=== PATIENT | female | born 1990 | race Caucasian/White ===

== ENCOUNTER 2018-03-20 15:41 | Inpatient (IN) ==
--- NOTE | 2018-03-20 17:04 | ED ---
History of Present Illness Primary Care Physician: NOT REQUIRED Chief Complaint: Contractions with pressure History of Present Illness: Ms. Mejia is a presenting at 40/2 weeks gestation for intermittent contractions and abdominal pressure/pain. Patient has been evaluated 2 times previously today in the OB ED for leg which she was both times sent home. [facility] where she was found to be 3 cm dilated. Patient states that her contractions increased and she presented to the OB ED for a labor check. She states that she is positive for both hepatitis C and herpes virus. She is currently been on Valtrex for prophylaxis and does not have a current outbreak. She is unsure of her most recent outbreak. Otherwise she states that this has been uncomplicated. She endorses good movement and denies any vaginal bleeding, vaginal discharge, dysuria, or hematuria at this time. She has no other acute complaints and denies a complete review of systems including but not limited to any fevers, chills, shortness of breath, chest pain, NVD, or calf tenderness at this time. She does endorse a penicillin allergy. She is unsure of her GBS status. 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 She endorses previous IV drug use likely related to her hepatitis C diagnosis. Weeks Gestation:: 40 Para: 0 : 2 PMFSH - History History Provided By: Patient - Medical History Medical History: Medical History (Last Updated 03/19/18 @ 19:55 by Billy Hoang MD) Ectopic HSV (herpes simplex virus) infection Hepatitis C virus History of intravenous drug abuse - Surgical History Surgical History: Surgical History (Last Updated 03/03/18 @ 13:10 by Bette Cardoza MD) Hx of tonsillectomy Status post excision of lipoma - Tobacco History Second Hand Smoke Exposure: No Smoking Status: Never smoker - Substance Use History Substance History: Past History - Travel History History of Recent Travel: No Medications and Allergies Allergies Allergy/AdvReac Type Severity Reaction Status Date / Time amoxicillin Allergy Severe Anaphylaxis Verified 03/03/18 12:35 Sulfa (Sulfonamide Allergy Severe Anaphylaxis Verified 03/03/18 12:35 Antibiotics) Home Medications Medication Instructions Recorded Confirmed Type PNV 39-iron [id number] 1 tab PO DAILY 03/03/18 03/20/18 History valacyclovir 1,000 mg PO DAILY 03/03/18 03/20/18 History Exam Vital signs: Vital Signs 03/20/18 16:03 Temperature 99.8 F H Pulse Rate 92 H Respiratory Rate 20 Blood Pressure 116/67 Narrative: GENERAL: Well-nourished, well-developed patient. SKIN: Warm and dry. HEAD: Normocephalic and atraumatic. EYES: No scleral icterus. No injection or drainage. ENT: No nasal drainage noted. Mucous membranes pink. Airway patent. NECK: Supple, trachea midline. No JVD. CARDIOVASCULAR: Regular rate and rhythm without murmurs, gallops, or rubs. RESPIRATORY: Breath sounds equal bilaterally. No accessory muscle use. ABDOMEN/GI: Abdomen soft, non-tender, bowel sounds present, no rebound, no guarding Gravid to 40 weeks size GENITOURINARY: Per Dr. Vinod Ortiz External Genitalia: intact and normal in appearance Cervix: Posterior Dilatation: 3 cm Effacement: 90 Station: -2 Membranes: Intact FHT's: Category: 1 Baseline: 140s Reactive: Positive Variability: Moderate Decels: None EXTREMITIES: No cyanosis or edema. BACK: Nontender without obvious deformity. No CVA tenderness. NEUROLOGICAL: Awake and alert. Motor and sensory grossly within normal limits. Five out of 5 muscle strength in all muscle groups. Normal speech. Assessment and Plan - Diagnosis (1) 40 weeks gestation of Code(s): Z3A.40 - 40 weeks gestation of Status: Acute Plan: 27-year-old presenting at 40/2 weeks gestation with abdominal pressure and irregular contractions Patient with progression from 1-3 cm dilation from her previous exams at the OB ED today Patient to be observed for possible labor progression and will be reevaluated in approximately 1 hour -Continue routine antepartum care Encouraged oral hydration and vitamin Category 1 tracing, reassuring SDW: Dr. Vinod Ortiz (2) Uterine contractions during Code(s): O62.2 - Other uterine inertia Status: Acute Discharge Plan - Discharge Disposition Patient Disposition: 30 Still Patient - Discharge Condition Condition: Good - Physicians Team ED Provider: Mari Silva Primary Care Provider: NOT REQUIRED, - Rxs /Orders / Referrals /Forms Prescriptions: No Action PNV 39-iron [id number]-gaosz-zky-dha 30 mg iron-1.2 mg-55 mg-265 mg Capsule 1 tab PO DAILY valacyclovir 1 gram Tablet 1,000 mg PO DAILY - Discharge Instructions Print Language: Kazakh
[2018-03-20] MEDS ORDERED: Oxytocin 30 Units/500ml Premix 30 UNITS/500 ML BAG IV.SIG ONE (18:03)
[2018-03-20] MEDS ORDERED: fentaNYL Citrate Inj 100 MCG/2 ML Ampul IV.PUSH PRN ×2 (18:03)
[2018-03-20] MEDS ORDERED: Sod Chloride 0.9% Inj 1,000 ML IV.CONT PRN (18:03)
[2018-03-20] MEDS ORDERED: Sodium Chlor 0.9% Inj 500 ML IV.SIG PRN (18:03)
[2018-03-20] MEDS ORDERED: Naloxone Inj 0.4 MG/ML Vial IV.PUSH PRN (18:03)
[2018-03-20] MEDS ORDERED: Oxytocin 30 Units/500ml Premix 30 UNITS/500 ML BAG IV.SIG PRN (18:04)
[2018-03-20] MEDS ORDERED: Citric Acid/Sodium Citrate Liq 30 ML UDC PO SCH (18:15)
--- NOTE | 2018-03-20 18:15 | P.HPOB ---
[facility] [id number] Date of : [birth year] Patient Status: Inpatient Attending Provider: Mari Birmingham Date: 03/20/18 16:35 Initialization Date: 03/20/18 16:35 History of Present Illness Primary Care Physician: NOT REQUIRED Chief Complaint: Contractions with pressure History of Present Illness: Ms. Mejia is a presenting at 40/2 weeks gestation for intermittent contractions and abdominal pressure/pain. Patient has been evaluated 2 times previously today in the OB ED for leg which she was both times sent home. She [facility] where she was found to be 3 cm dilated. Patient states that her contractions increased and she presented to the OB ED for a labor check. She states that she is positive for both hepatitis C and herpes virus. She is currently been on Valtrex for prophylaxis and does not have a current outbreak. She is unsure of her most recent outbreak. Otherwise she states that this has been uncomplicated. She endorses good movement and denies any vaginal bleeding, vaginal discharge, dysuria, or hematuria at this time. She has no other acute complaints and denies a complete review of systems including but not limited to any fevers, chills, shortness of breath, chest pain, NVD, or calf tenderness at this time. She does endorse a penicillin allergy. She is unsure of her GBS status. 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 She endorses previous IV drug use likely related to her hepatitis C diagnosis. Weeks Gestation:: 40 Para: 0 : 2 PMFSH - History History Provided By: Patient - Medical History Medical History: Medical History (Last Updated 03/19/18 @ 19:55 by Billy Hoang MD) Ectopic HSV (herpes simplex virus) infection Hepatitis C virus History of intravenous drug abuse - Surgical History Surgical History: Surgical History (Last Updated 03/03/18 @ 13:10 by Bette Cardoza MD) Hx of tonsillectomy Status post excision of lipoma - Tobacco History Second Hand Smoke Exposure: No Smoking Status: Never smoker - Substance Use History Substance History: Past History - Travel History History of Recent Travel: No Medications and Allergies Allergies Allergy/AdvReac Type Severity Reaction Status Date / Time amoxicillin Allergy Severe Anaphylaxis Verified 03/03/18 12:35 Sulfa (Sulfonamide Allergy Severe Anaphylaxis Verified 03/03/18 12:35 Antibiotics) Home Medications Medication Instructions Recorded Confirmed Type PNV 39-iron [id number]-jhckx-[id number]-dha 1 tab PO DAILY 03/03/18 03/20/18 History valacyclovir 1,000 mg PO DAILY 03/03/18 03/20/18 History Exam Vital signs: Vital Signs 03/20/18 16:03 Temperature 99.8 F H Pulse Rate 92 H Respiratory Rate 20 Blood Pressure 116/67 Narrative: GENERAL: Well-nourished, well-developed patient. SKIN: Warm and dry. HEAD: Normocephalic and atraumatic. EYES: No scleral icterus. No injection or drainage. ENT: No nasal drainage noted. Mucous membranes pink. Airway patent. NECK: Supple, trachea midline. No JVD. CARDIOVASCULAR: Regular rate and rhythm without murmurs, gallops, or rubs. RESPIRATORY: Breath sounds equal bilaterally. No accessory muscle use. ABDOMEN/GI: Abdomen soft, non-tender, bowel sounds present, no rebound, no guarding Gravid to 40 weeks size GENITOURINARY: External Genitalia: intact and normal in appearance, no HSV lesions present Cervix: midposition Dilatation: 3-4 cm Effacement: 90 Station: -2 Membranes: Intact FHT's: Category: 1 Baseline: 140s Reactive: Positive Variability: Moderate Decels: None EXTREMITIES: No cyanosis or edema. BACK: Nontender without obvious deformity. No CVA tenderness. NEUROLOGICAL: Awake and alert. Motor and sensory grossly within normal limits. Five out of 5 muscle strength in all muscle groups. Normal speech. Assessment and Plan - Diagnosis (1) 40 weeks gestation of Code(s): Z3A.40 - 40 weeks gestation of Status: Acute Plan: (2) Uterine contractions during Code(s): O62.2 - Other uterine inertia Status: Acute Currently patient is 40+ week, no benefit in prolonging the she has adequate care, plan augmentation of labor patient accepts this plan of care Discharge Plan - Discharge Disposition Patient Disposition: Admit - Discharge Condition Condition: Good - Physicians Team ED Provider: Mari Birmingham Primary Care Provider: NOT REQUIRED, - Rxs /Orders / Referrals /Forms Prescriptions: No Action PNV 39-iron [id number]-goyqc-lvs-dha 30 mg iron-1.2 mg-55 mg-265 mg Capsule 1 tab PO DAILY valacyclovir 1 gram Tablet 1,000 mg PO DAILY - Discharge Instructions Print Language: Iraqi
[2018-03-20 18:36] LABS: Baso # (Auto) 0.1 th/mm3 (0.0-0.2); Baso % (Auto) 0.6 % (0.0-2.0); Eos % (Auto) 0.3 % (0.0-4.0); Hematocrit 35.5 % (35.0-46.0); Hemoglobin 12.2 gm/dL (11.6-15.3); Lymph # (Auto) 2.7 th/mm3 (1.0-4.8); Lymph % (Auto) 16.4 % (9.0-44.0); Mean Corpuscular HGB Conc 34.5 % (32.0-36.0); Mean Corpuscular Volume 87.1 fL (80.0-100.0); Mean Platelet Volume 10.3 fL (7.0-11.0); Mono # (Auto) 0.9 th/mm3 (0.0-0.9); Mono % (Auto) 5.6 % (0.0-8.0); Neut # (Auto) 12.6 th/mm3 (1.8-7.7); Neut % (Auto) 77.1 % (16.0-70.0); Platelet Count 312 th/mm3 (150-450); Red Blood Count 4.07 mil/mm3 (4.00-5.30); Red Cell Distribution Width 14.4 % (11.6-17.2); White Blood Count 16.4 th/mm3 (4.0-11.0)
[2018-03-20 19:08] LABS: Bacteria,Urine Rare /hpf; Bilirubin,Urine Negative (Negative); Clarity,Urine Hazy (Clear); Color,Urine Yellow (Yellw/Straw); Glucose,Urine (UA) Negative (Negative); Leukocyte Esterase,Urine Negative (Negative); Mucus,Urine Few /lpf (Occasional); Nitrite,Urine Negative (Negative); Specific Gravity,Urine 1.016 (1.002-1.035); Squamous Epithelial Cell,Urine 6 /hpf (0-5)
[2018-03-20 19:11] LABS: Amphetamine Urine With Conf Neg (Neg); Benzodiazepine Urine With Conf Neg (Neg); Cocaine Urine With Conf Neg (Neg); Opiates Urine With Conf Neg (Neg)
[2018-03-20 19:13] LABS: Cannabinoid Urine With Conf Neg (Neg)
[2018-03-20] MEDS ORDERED: fentaNYL 2MCG-Bupiv 0.125% Epi 150 ML EPIDURAL ONE (19:41)
[2018-03-20] MEDS ORDERED: Lidocaaine 1.5%/Epinephrine 1:200,000 PF Inj 5 ML Amp ONE (20:04)
[2018-03-20] MEDS ORDERED: Lidocaine PF 1% Inj 5 ML Vial ONE (20:04)
[2018-03-20] MEDS ORDERED: fentaNYL Citrate Inj 100 MCG/2 ML Ampul EPIDURAL ONE (20:33)
[2018-03-20] MEDS ORDERED: fentaNYL 2MCG-Bupiv 0.125% Epi 150 ML EPIDURAL PRN (20:33)
--- NOTE | 2018-03-20 20:48 | P.OBGPN ---
Epidural in place. AROM thick meconium noted. heart rate category 1. VE 4/80% effaced /-2. Continue with augmentation of labor
--- NOTE | 2018-03-21 02:22 | P.OBGPN ---
Patient seen and evaluated . IUPC placed by RN. heart rate category 1 early decelerations noted. VE 8 cm 80% effaced -1 station, mild edema of the cervix patient received p.o. Benadryl, edema secondary to vertex slightly deflexed however adequate pelvis maternal position change(hands and knees high Saenz's)-hopefully will result in anticipated vaginal delivery will reevaluate.
[2018-03-21] MEDS ORDERED: miSOPROStol 200 MCG Tablet ONE (05:57)
[2018-03-21] MEDS ORDERED: miSOPROStol 200 MCG Tablet RECTAL STA (06:17)
[2018-03-21] MEDS ORDERED: miSOPROStol 200 MCG Tablet PO STA (06:17)
[2018-03-21] MEDS ORDERED: Bisacodyl 10 MG Supp RECTAL PRN (06:19)
[2018-03-21] MEDS ORDERED: Oxytocin 30 Units/500ml Premix 30 UNITS/500 ML BAG IV.CONT PRN (06:19)
[2018-03-21] MEDS ORDERED: Witch Hazel 50%/Glyderin 12.5% 40 Pad Jar RECTAL PRN (06:19)
[2018-03-21] MEDS ORDERED: Zolpidem Tartrate 5 MG Tablet PO PRN (06:19)
[2018-03-21] MEDS ORDERED: Benzocaine 20% Top Spray 60 ML Can TOPICAL PRN (06:19)
[2018-03-21] MEDS ORDERED: Naloxone Inj 0.4 MG/ML Vial IV.PUSH PRN (06:19)
--- NOTE | 2018-03-21 06:25 | P.OBDELI ---
Weeks Gestation: 40 Patient Started Active Labor: Yes Medical Induction of Labor: Yes (Augmentation of labor) Artificial Rupture of Membrane: Yes (Thick meconium) Anesthesia: Epidural Episiotomy: none Vaginal Delivery: Normal Presentation: Occiput anterior Nuchal Cord: None Delayed Cord Clamping (45 sec): Yes Placenta: Spontaneous delivery, Uterus explored + Laceration: Vaginal, 2 deg Repair: Chromic running Estimated blood loss (mL): 150 Weight: 3.23 kg score (1 min): 8 score (5 min): 9 Additional Information: Postdelivery-bleeding noted to be heavier than expected however not consistent with hemorrhage. Reevaluation no deep sulcus tears no cervical lacerations no products of conception noted within the cavity. Pitocin wide open and subsequently fundal massage but uterus was noted to be firm. Cytotec a total of 800 administered 600 per rectum 200 orally with good response and no further issues with bleeding.
[2018-03-21] MEDS ORDERED: Azithromycin 250 MG Tablet PO ONE (09:15)
[2018-03-21] MEDS: Senna/Docusate Sodium 8.6/50 MG Tablet PO SCH ×2 (10:16→21:00)
[2018-03-21] MEDS: Acetaminophen 325 MG Tablet PO PRN (14:06)
[2018-03-21] MEDS ORDERED: Diphtheria/Tetanus/Pertussis Vaccine Inj 0.5 ML Syringe IM ONE (16:00)
[2018-03-21] MEDS ORDERED: Measles/Mumps/Rubella Vaccine Inj 0.5 ML Vial SQ ONE (16:00)
[2018-03-22] MEDS: Acetaminophen 325 MG Tablet PO PRN ×2 (02:29→14:11)
[2018-03-22 08:04] VITALS: BP 119/78; PULSE 74; RESP 20; TEMP 98.1
[2018-03-22] MEDS: Senna/Docusate Sodium 8.6/50 MG Tablet PO SCH (08:44)
[2018-03-22] MEDS ORDERED: Azithromycin 250 MG Tablet PO SCH (09:00)
--- NOTE | 2018-03-22 10:00 | P.PNFP ---
Results - Labs Result diagrams: 03/20/18 18:13 Physical Exam Vital signs: Vital Signs 03/21/18 14:38 03/21/18 20:00 03/22/18 08:00 Temperature 99.0 F 97.9 F 98.1 F Pulse Rate 84 84 74 Respiratory Rate 16 18 20 Blood Pressure 117/70 115/65 119/78 Assessment and Plan - Assessment (1) 40 weeks gestation of Code(s): Z3A.40 - 40 weeks gestation of Status: Acute (2) Uterine contractions during Code(s): O62.2 - Other uterine inertia Status: Acute
--- NOTE | 2018-03-22 10:01 | P.PNOB ---
Subjective Post day: 1 Interval history: day # 1. AFVSS overnight. Patient was last febrile at 8 AM on 03/21, she is remained afebrile for the last 24 hours. Pain well controlled. Decreased lochia. Denies dysuria. No breast tenderness. She is feeding the baby via breast. Appetite good. No nausea or vomiting. + flatus. No bowel movement. Ambulating well. Denies calf pain, shortness of breath, or cough. Otherwise, she is doing well this morning and has no other complaints. Objective Vital Signs/I&O: Vital Signs 03/21/18 14:38 03/21/18 20:00 03/22/18 08:00 Temperature 99.0 F 97.9 F 98.1 F Pulse Rate 84 84 74 Respiratory Rate 16 18 20 Blood Pressure 117/70 115/65 119/78 Result Diagrams: 03/20/18 18:13 Objective Remarks: GENERAL: Well-nourished, well-developed patient. CARDIOVASCULAR: Regular rate and rhythm without murmurs, gallops, or rubs. RESPIRATORY: Breath sounds equal bilaterally. No accessory muscle use. ABDOMEN/GI: Abdomen soft, non-tender. Fundus: Firm, non-tender at umbilicus. GENITOURINARY: Light to moderate bleeding. EXTREMITIES: No cyanosis or edema, non-tender, without signs of DVT. Medications and IVs: Active Medications Acetaminophen (Tylenol) 650 mg PO Q4H PRN PRN Reason: PAIN SCALE 1 TO 2 Last Admin: 03/22/18 02:29 Dose: 650 mg Al Hydroxide/Mg Hydroxide (Milk Of Magnesia Liq) 30 ml PO Q12H PRN PRN Reason: Mild Constipation Azithromycin (Zithromax) 250 mg PO DAILY [facility] Stop: 03/26/18 08:59 Last Admin: 03/22/18 08:44 Dose: 250 mg Benzocaine (Americaine 20% [place]) 1 spray TOPICAL Q4H PRN PRN Reason: For Perineum Discomfort Last Admin: 03/22/18 02:28 Dose: 1 spray Bisacodyl (Dulcolax Supp) 10 mg RECTAL DAILY PRN PRN Reason: SEVERE CONSITIPATION Fentanyl/Bupivacaine/Sodium Chlor (Fentanyl 2 Mcg-Bupiv 0.125% Epi) 150 mls @ 10 mls/hr EPIDURAL PRN PRN PRN Reason: for Labor Pain Last Admin: 03/20/18 21:09 Dose: 10 mls/hr Oxytocin (Pitocin 30 Units/Ns 500 Ml Premix) 30 units in 500 mls @ 100 mls/hr IV.CONT UNSCH PRN PRN Reason: Heavy bleeding Ibuprofen (Motrin) 800 mg PO Q8H PRN PRN Reason: For Cramping Last Admin: 03/22/18 02:28 Dose: 800 mg Lactulose (Lactulose Liq) 30 ml PO DAILY PRN PRN Reason: SEVERE CONSITIPATION Naloxone HCl (Narcan Inj) 0.1 mg IV.PUSH Q2M PRN PRN Reason: for opiate reversal Ondansetron HCl (Zofran Odt) 4 mg PO Q6H PRN PRN Reason: NAUSEA OR VOMITING Last Admin: 03/21/18 07:10 Dose: 4 mg Senna/Docusate Sodium (Rossi-Colace) 1 tab PO BID [facility] Last Admin: 03/22/18 08:44 Dose: 1 tab Sennosides (Senokot) 17.2 mg PO Q12H PRN PRN Reason: Moderate Constipation Sodium Chloride (Ns Flush) 2 ml IV.FLUSH BID [facility] Last Admin: 03/22/18 08:47 Dose: Not Given Sodium Chloride (Ns Flush) 2 ml IV.FLUSH PRN PRN PRN Reason: FLUSH AFTER USING IV ACCESS Witch Elizabeth/Glycerin (Tucks Pads) 1 applicatio RECTAL QID PRN PRN Reason: HEMORRHOIDS Last Admin: 03/22/18 02:28 Dose: 1 applicatio Zolpidem Tartrate (Ambien) 5 mg PO HS PRN PRN Reason: SLEEP Assessment and Plan - Diagnosis (1) 40 weeks gestation of Code(s): Z3A.40 - 40 weeks gestation of Status: Acute Plan: 27-year-old presenting at 40/2 weeks gestation with abdominal pressure and irregular contractions Patient with progression from 1-3 cm dilation from her previous exams at the OB ED today Patient to be observed for possible labor progression and will be reevaluated in approximately 1 hour -Continue routine antepartum care Encouraged oral hydration and vitamin Category 1 tracing, reassuring SDW: Dr. Vinod Ortiz (2) Uterine contractions during Code(s): O62.2 - Other uterine inertia Status: Acute - Plan 27 y/o who is PPD# 1 s/p . -Continue routine care. -Motrin PRN pain. -Encouraged OOB. Advised pelvic rest for 6 wks. -Will need a f/u appt. within 6 wks. -Re: ctrl, she would like consider her options. Plans to discuss further at post- visit. -Stable for D/C to home today wdw OB attending Dr. Smyth - Attending Attestation I personally saw and examined patient with the resident and participated in all kennedy decision making. Continue routine care, routine instructions given, remains afebrile, patient requesting discharge today, anticipate discharge late today or tomorrow. SMS
== END 2018-03-22 15:40 | disposition home or self-care (01) ==
LOC: HOBED 15:41 → H2E 18:08 → H1EA 03-21 08:13
PROVIDERS: ADMIT Obstetrics & Gynecology; ATTEND Obstetrics & Gynecology